=== PATIENT | female | born 1960 | race Caucasian/White ===

== ENCOUNTER 2018-07-27 10:25 | Emergency (ER) | payer OTHER ==
[2018-07-27 10:32] VITALS: RESP 18; TEMP 98.6
[2018-07-27] MEDS ORDERED: SODIUM CHLORIDE 0.9% 500 ML 500 ML IV STA (11:06)
--- NOTE | 2018-07-27 11:38 | ED ---
General Adult HPI - General Chief complaint: Neuro Symptoms/Deficit Stated complaint: Numbness around mouth/high blood pressure Time Seen by Provider: 07/27/18 10:55 Source: patient, RN notes reviewed, old records reviewed Mode of arrival: ambulatory Limitations: no limitations - History of Present Illness Initial comments: 57-year-old female presenting for evaluation of elevated blood pressure. Patient went to the dentist yesterday, had blood pressure checked noted to be quite elevated 200 systolic. Patient has no known history of hypertension, not currently on any medications. She has no chronic medical problems. This morning the patient did notice a knot feeling in her left arm and around her lips. Denies numbness, denies tingling. States it just feels different. No pain. No weakness. Denies any focal weakness or numbness. Denies headache. Denies vision changes. Denies gait abnormalities. No chest pain or dyspnea. No abdominal pain. No nausea or vomiting. - Related Data Home Medications Medication Instructions Recorded Confirmed Ascorbic Acid [Vitamin C] 500 mg PO DAILY 07/27/18 07/27/18 Ibuprofen [Motrin Ib] 400 mg PO Q6H PRN 07/27/18 07/27/18 Ubidecarenone [Co Q-10] 100 mg PO DAILY 07/27/18 07/27/18 Vitamin B Complex 1 cap PO DAILY 07/27/18 07/27/18 Vitamin E 100 unit PO DAILY 07/27/18 07/27/18 Allergies Allergy/AdvReac Type Severity Reaction Status Date / Time No Known Allergies Allergy Verified 07/27/18 10:58 Review of Systems ROS Statement: Those systems with pertinent positive or pertinent negative responses have been documented in the HPI. ROS Other: All systems not noted in ROS Statement are negative. Past Medical History Past Medical History: No Reported History History of Any Multi-Drug Resistant Organisms: None Reported Past Surgical History: No Surgical Hx Reported Past Psychological History: No Psychological Hx Reported Smoking Status: Current every day smoker Past Alcohol Use History: None Reported Past Drug Use History: None Reported General Exam Limitations: no limitations General appearance: alert, in no apparent distress Head exam: Present: atraumatic, normocephalic Eye exam: Present: normal appearance, PERRL, EOMI. Absent: nystagmus ENT exam: Present: normal exam Neck exam: Present: normal inspection. Absent: tenderness, meningismus Respiratory exam: Present: normal lung sounds bilaterally. Absent: respiratory distress, wheezes Cardiovascular Exam: Present: regular rate, normal rhythm GI/Abdominal exam: Present: soft. Absent: distended, tenderness, guarding Extremities exam: Present: normal inspection, normal capillary refill. Absent: pedal edema Neurological exam: Present: alert, oriented X3, CN II-XII intact, normal gait. Absent: motor sensory deficit Expanded Neurological exam: Present: protecting the airway. Absent: ataxia, receptive aphasia, expressive aphasia Patient oriented to: Present: person, place, time Speech: Present: fluid speech Cranial nerves: EOM's Intact: Normal, Gag Reflex: Normal, Tongue Deviation: Normal, Nystagmus: Normal, Facial Sensation: Normal, Facial Palsy with Forehead Movement: Normal, Facial Palsy without Forehead Movement: Normal Cerebellar function: Finger to Nose: Normal, Romberg: Normal Upper motor neuron: Duncan Neglect: Normal, Pronator Drift: Normal Sensory exam: Upper Extremity Light Touch: Normal, Lower Extremity Light Touch: Normal Motor strength exam: RUE: 5, LUE: 5, RLE: 5, LLE: 5 Eye Response: (4) open spontaneously Motor Response: (6) obeys commands Verbal Response: (5) oriented Psychiatric exam: Present: normal affect, normal mood Skin exam: Present: warm, dry, intact. Absent: cyanosis, diaphoretic Course Vital Signs 07/27/18 07/27/18 07/27/18 10:28 11:22 12:02 Temperature 98.6 F Pulse Rate 71 67 64 Respiratory 18 18 18 Rate Blood Pressure 209/111 187/109 168/102 O2 Sat by Pulse 98 100 100 Oximetry - Reevaluation(s) Reevaluation #1: 07/27/18 13:10 Patient initially presenting with periorbital paresthesia, left arm paresthesia and hypertension. On reevaluation, left arm symptoms have improved, NIH is 0 at the time of my initial evaluation and 0 at the time of reevaluation, blood pressure improved. EKG Findings - EKG Comments: EKG Findings:: EKG: Normal sinus rhythm, LVH, rate of 69, IL interval 150, QRS duration 82, QTC 447, no ST segment changes Medical Decision Making - Medical Decision Making 57-year-old female with no significant past medical history presenting for evaluation of hypertension and left arm paresthesia, no numbness, no weakness, nonfocal neurologic exam with NIH is 0. Head CT obtained, negative for intracranial hemorrhage or mass effect, normal CBC, normal CMP, negative troponin, chest x-ray obtained, no cardiomegaly, no acute process. Patient's symptoms concerning for accelerated hypertension with TIA. Patient was given aspirin and Norvasc in the emergency department. A she will be transferred for further evaluation and treatment of both hypertension and evaluation of TIA and CVA. Case discussed with Dr. Beaver, at [facility], will except transfer. - Lab Data Result diagrams: 07/27/18 11:20 07/27/18 11:20 Lab Results 07/27/18 07/27/18 07/27/18 Range/Units 11:20 11:20 11:20 WBC 6.4 (3.8-10.6) k/uL RBC 4.86 (3.80-5.40) m/uL Hgb 14.9 (11.4-16.0) gm/dL Hct 44.1 (34.0-46.0) % MCV 90.8 (80.0-100.0) fL MCH 30.7 (25.0-35.0) pg MCHC 33.8 (31.0-37.0) g/dL RDW 12.7 (11.5-15.5) % Plt Count 222 (150-450) k/uL Neutrophils % 55 % Lymphocytes % 36 % Monocytes % 4 % Eosinophils % 2 % Basophils % 1 % Neutrophils # 3.5 (1.3-7.7) k/uL Lymphocytes # 2.3 (1.0-4.8) k/uL Monocytes # 0.3 (0-1.0) k/uL Eosinophils # 0.1 (0-0.7) k/uL Basophils # 0.1 (0-0.2) k/uL PT 9.9 (9.0-12.0) sec INR 0.9 (<1.2) APTT 24.9 (22.0-30.0) sec Sodium 140 (137-145) mmol/L Potassium 4.5 (3.5-5.1) mmol/L Chloride 104 (98-107) mmol/L Carbon Dioxide 27 (22-30) mmol/L Anion Gap 9 mmol/L BUN 13 (7-17) mg/dL Creatinine 0.56 (0.52-1.04) mg/dL Est GFR (CKD-EPI)AfAm >90 (>60 ml/min/1.73 sqM) Est GFR (CKD-EPI)NonAf >90 (>60 ml/min/1.73 sqM) Glucose 100 H (74-99) mg/dL Calcium 10.0 (8.4-10.2) mg/dL Total Bilirubin 0.6 (0.2-1.3) mg/dL AST 22 (14-36) U/L ALT 41 (9-52) U/L Alkaline Phosphatase 59 (38-126) U/L Troponin I (0.000-0.034) ng/mL Total Protein 7.7 (6.3-8.2) g/dL Albumin 4.5 (3.5-5.0) g/dL 07/27/18 Range/Units 11:20 WBC (3.8-10.6) k/uL RBC (3.80-5.40) m/uL Hgb (11.4-16.0) gm/dL Hct (34.0-46.0) % MCV (80.0-100.0) fL MCH (25.0-35.0) pg MCHC (31.0-37.0) g/dL RDW (11.5-15.5) % Plt Count (150-450) k/uL Neutrophils % % Lymphocytes % % Monocytes % % Eosinophils % % Basophils % % Neutrophils # (1.3-7.7) k/uL Lymphocytes # (1.0-4.8) k/uL Monocytes # (0-1.0) k/uL Eosinophils # (0-0.7) k/uL Basophils # (0-0.2) k/uL PT (9.0-12.0) sec INR (<1.2) APTT (22.0-30.0) sec Sodium (137-145) mmol/L Potassium (3.5-5.1) mmol/L Chloride (98-107) mmol/L Carbon Dioxide (22-30) mmol/L Anion Gap mmol/L BUN (7-17) mg/dL Creatinine (0.52-1.04) mg/dL Est GFR (CKD-EPI)AfAm (>60 ml/min/1.73 sqM) Est GFR (CKD-EPI)NonAf (>60 ml/min/1.73 sqM) Glucose (74-99) mg/dL Calcium (8.4-10.2) mg/dL Total Bilirubin (0.2-1.3) mg/dL AST (14-36) U/L ALT (9-52) U/L Alkaline Phosphatase (38-126) U/L Troponin I <0.012 (0.000-0.034) ng/mL Total Protein (6.3-8.2) g/dL Albumin (3.5-5.0) g/dL Disposition Clinical Impression: Transient cerebral ischemia, Hypertension Disposition: OTHER INSTITUTION NOT DEFINED Condition: Stable Is patient prescribed a controlled substance at d/c from ED?: No Referrals: Chacorta Rodrigues DO [Primary Care Provider] - 1-2 days Time of Disposition: 13:12 - Out of Hospital Transfer - Req. Specs Out of Hospital Transfer - Requested Specifics: Other Emergency Center ( Transfer to [facility])
[2018-07-27 11:41] LABS: Basophils # (A) 0.1 k/uL (0-0.2); Basophils % (A) 1 %; Eosinophils # (A) 0.1 k/uL (0-0.7); Eosinophils % (A) 2 %; HCT 44.1 % (34.0-46.0); HGB 14.9 gm/dL (11.4-16.0); Lymphocytes # (A) 2.3 k/uL (1.0-4.8); Lymphocytes % (A) 36 %; MCH 30.7 pg (25.0-35.0); MCHC 33.8 g/dL (31.0-37.0); MCV 90.8 fL (80.0-100.0); Mean Platelet Volume 8.2; Monocytes # (A) 0.3 k/uL (0-1.0); Monocytes % (A) 4 %; Neutrophils # (A) 3.5 k/uL (1.3-7.7); Neutrophils % (A) 55 %; Platelet Count 222 k/uL (150-450); RBC 4.86 m/uL (3.80-5.40); RDW 12.7 % (11.5-15.5); WBC 6.4 k/uL (3.8-10.6)
[2018-07-27 11:45] LABS: INR 0.9 (<1.2); Partial Thromboplastin Time 24.9 sec (22.0-30.0); Prothrombin Time 9.9 sec (9.0-12.0)
--- NOTE | 2018-07-27 11:52 | CT ---
EXAMINATION TYPE: CT brain wo con DATE OF EXAM: 07/27/2018 COMPARISON: None INDICATION: Dizziness, elevated BP, numbness around lips, Lt arm numbness DLP: 1074.4 mGycm, Automated exposure control for dose reduction was used. CONTRAST: None CT of the brain is performed utilizing 3 mm thick sections through the posterior fossa and 3 mm thick sections through the remaining calvarium. Study is performed within 24 hours of arrival to the hosp [facility]. No abnormal hyperdensity is present to suggest an acute intracranial hemorrhage. No mass lesion is evident. No acute infarcts are evident. Ventricles and sulci are appropriate for the patient age. There is a retention cyst within the right maxillary sinus. No suspicious air-fluid levels are presen t. Remaining paranasal sinuses and mastoid air cells are clear. IMPRESSIONS: 1. Normal CT Brain 2. Retention cyst right maxillary sinus
[2018-07-27] MEDS ORDERED: amLODIPine 5 MG TAB PO STA (11:55)
[2018-07-27] MEDS ORDERED: ASPIRIN 325 MG TAB PO STA (11:55)
[2018-07-27 11:56] LABS: ALT 41 U/L (9-52); AST 22 U/L (14-36); Albumin 4.5 g/dL (3.5-5.0); Alkaline Phosphatase 59 U/L (38-126); Anion Gap 9 mmol/L; Blood Urea Nitrogen 13 mg/dL (7-17); Carbon Dioxide 27 mmol/L (22-30); Chloride 104 mmol/L (98-107); Glucose 100 mg/dL (74-99); Potassium 4.5 mmol/L (3.5-5.1); Sodium 140 mmol/L (137-145); Total Bilirubin 0.6 mg/dL (0.2-1.3); Total Protein 7.7 g/dL (6.3-8.2)
--- NOTE | 2018-07-27 12:09 | XR ---
EXAMINATION TYPE: XR chest 2V DATE OF EXAM: 07/27/2018 COMPARISON: NONE HISTORY: Facial numbness and weakness. History of hypertension. TECHNIQUE: Frontal and lateral views of the chest are obtained. FINDINGS: Overlying EKG leads are seen. There is some chronic parenchymal change in the apices witho ut focal air space opacity, pleural effusion, or pneumothorax seen. The cardiac silhouette size is w ithin normal limits with ectatic descending thoracic aorta. The osseous structures are intact. IMPRESSION: No acute cardiopulmonary process.
[2018-07-27 13:47] VITALS: BP 180/110; PULSE 72
== END 2018-07-27 13:46 | disposition other institution (70) ==
LOC: EC 10:25
DX: G45.9 Transient cerebral ischemic attack, unspecified (principal); I10 Essential (primary) hypertension; R29.700 NIHSS score 0; F17.200 Nicotine dependence, unspecified, uncomplicated; Z79.899 Other long term (current) drug therapy
CPT/HCPCS: 36415; 70450; 71046; 80053; 84484; 85025; 85610; 85730; 93005; 96360; 96361; 99285

== ENCOUNTER → 2022-10-05 | Outpatient (CLI) | payer OTHER ==
--- NOTE | 2022-10-05 16:00 | XR ---
EXAMINATION TYPE: XR Hip Complete RT DATE OF EXAM: 10/05/2022 COMPARISON: None HISTORY: Pain TECHNIQUE: 2 view right hip FINDINGS: Femoral head articulates with the acetabulum. No acute fracture or dislocation is evident. Some degenerative change may be at the symphysis pubis. Right sacroiliac joint within the field-of-vi ew has mild degenerative change. Follow-up exams can be performed 7-10 days of acute trauma for continued pain IMPRESSION: 1. No acute osseous abnormality right
== END | disposition home or self-care (01) ==
LOC: RADXRYALE 11:53
PROVIDERS: ATTEND Physician Assistant
DX: M25.551 Pain in right hip (principal); M54.32 Sciatica, left side; R22.43 Localized swelling, mass and lump, lower limb, bilateral
CPT/HCPCS: 73502